=== PATIENT | female | born 1965 | race Caucasian/White ===

== ENCOUNTER 2022-01-19 12:28 | Emergency (ER) | payer BC, OTHER ==
[2022-01-19] MEDS ORDERED: ONDANSETRON 4 MG/2 ML VIAL ONE (13:14)
[2022-01-19] MEDS ORDERED: MORPHINE 4 MG/ML SYR ONE ×2 (13:14→15:10)
--- NOTE | 2022-01-19 14:14 | RAD REPORT ---
EXAM DESCRIPTION: RAD - Tib Fib Left - 01/19/2022 1:57 pm CLINICAL HISTORY: Fall, knee leg pain COMPARISON: Left knee same date FINDINGS: Tibial plateau and proximal tibia fracture changes are detailed on the knee report. From t he midshaft to the distal tibia no acute findings seen. No fibula fracture identified. No pathologic bone change seen. No foreign body in the soft tissues. IMPRESSION: Proximal left tibia fracture detailed on the knee report. Fibula is intact. Tibia from midshaft ankle unremarkable.
--- NOTE | 2022-01-19 14:17 | RAD REPORT ---
EXAM DESCRIPTION: RAD - Knee Left 3 View - 01/19/2022 1:59 pm CLINICAL HISTORY: PAINafter fall COMPARISON: Left tib-fib same date FINDINGS: Comminuted fracture involves the tibial plateau with large fracture planes extending to th e proximal shaft. Lateral tibial plateau shows approximately 12 mm of depression. There are multiple small fracture fragments along the course of the main fracture plane that extends from the lateral ma rgin of the tibial spine to the lateral margin of the proximal femoral shaft. Additional oblique frac ture plane traverses the medial tibial plateau. Fibula appears to be intact.Lateral femoral condyle is impacted into the tibial plateau with laterall y directed diastasis of the lateral tibial plateau fracture fragment. Small joint effusion is present. No fat fluid level identified on the cross-table lateral view. IMPRESSION: Comminuted fracture of the proximal tibia with impaction of the lateral femoral condyle into the lateral tibial plateau.
--- NOTE | 2022-01-19 14:21 | ER ---
Nurse's Notes [facility] Name: Carin Kline Age: 56 yrs Sex: Female : 1965 Arrival Date: 01/19/2022 Time: 12:32 Bed 2 Private MD: Diagnosis: Displaced comminuted fracture of shaft of left tibia-Tibial plateau with significant displacement Presentation: 01/19 12:33 Chief complaint: Patient states: Outside in shed and missed a step on the ladder and ww fell. Complaining of left leg and knee pain. Patient denies hitting head or any LOC. Received 100mcg of Fentanyl in route with EMS. Coronavirus screen: Vaccine status: Patient reports receiving the 2nd dose of the covid vaccine. Client denies travel out of the [place] in the last 14 days. Ebola Screen: Patient denies travel to an Ebola-affected area in the 21 days before illness onset. Initial Sepsis Screen: Does the patient meet any 2 criteria? No. Patient's initial sepsis screen is negative. Does the patient have a suspected source of infection? No. Patient's initial sepsis screen is negative. Risk Assessment: Do you want to hurt yourself or someone else? Patient reports no desire to harm self or others. Onset of symptoms was January 19, 2022. 12:33 Method Of Arrival: EMS: [facility] ww 12:33 Acuity: JERRY 3 ww Triage Assessment: 12:36 General: Appears uncomfortable, Behavior is calm, cooperative. Pain: Complains of pain ww in posterior aspect of left knee, left calf, medial aspect of left knee, medial aspect of left calf, left knee and left khalil. EENT: No signs and/or symptoms were reported regarding the EENT system. Neuro: Level of Consciousness is awake, alert, obeys commands, Oriented to person, place, time, situation, Speech is normal. Cardiovascular: Capillary refill < 3 seconds Patient's skin is warm and dry. Pulses are palpable in right posterior tibial artery, right dorsalis pedis artery, left posterior tibial artery and left dorsalis pedis artery Rhythm is regular. Respiratory: Airway is patent Respiratory effort is even, unlabored, Respiratory pattern is regular, symmetrical. GI: No signs and/or symptoms were reported involving the gastrointestinal system. Abdomen is non-distended, Abd is soft and non tender. : No signs and/or symptoms were reported regarding the genitourinary system. Derm: Skin is intact. Musculoskeletal: Reports pain in posterior aspect of left knee, left calf, medial aspect of left knee, medial aspect of left calf, left knee and left khalil. 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 - Social history:: Smoking status: Patient denies any tobacco usage or history of. - Family history:: not pertinent. - Hospitalizations: : No recent hospitalization is reported. Screenin:40 Abuse screen: Denies threats or abuse. Denies injuries from another. Nutritional ww screening: No deficits noted. Tuberculosis screening: No symptoms or risk factors identified. Fall Risk Fall in past 12 months (25 points). No secondary diagnosis (0 pts). IV access (20 points). Ambulatory Aid- None/Bed Rest/Nurse Assist (0 pts). Gait- Normal/Bed Rest/Wheelchair (0 pts) Mental Status- Oriented to own ability (0 pts). Total Hummel Fall Scale indicates Low Risk Score (25-44 pts). Fall prevention measures have been instituted. Side Rails Up X 2 Placed close to Nursing Station 1:1 attendant Assigned to Pt. Frequent Obs/Assesments occuring Family Present and informed to notify staff if they need to leave bedside As available Patient and Family Educated on Fall Prevention Program and strategies. Assessment: 12:40 Reassessment: Patient appears in no apparent distress at this time. Patient and/or ww family updated on plan of care and expected duration. Pain level reassessed. Patient is alert, oriented x 3, equal unlabored respirations, skin warm/dry/pink. see triage assessment. 13:46 Reassessment: Patient appears in no apparent distress at this time. No changes from vg1 previously documented assessment. Patient and/or family updated on plan of care and expected duration. Pain level reassessed. Patient is alert, oriented x 3, equal unlabored respirations, skin warm/dry/pink. Rates pain level 5/10. 14:35 Reassessment: Patient appears in no apparent distress at this time. No changes from ww previously documented assessment. Patient and/or family updated on plan of care and expected duration. Pain level reassessed. Patient is alert, oriented x 3, equal unlabored respirations, skin warm/dry/pink. placed left leg in knee immobilizer. Patient tolerated well with pain. Family at bedside. 15:10 Reassessment: Patient appears in no apparent distress at this time. No changes from ww previously documented assessment. Patient and/or family updated on plan of care and expected duration. Pain level reassessed. Patient is alert, oriented x 3, equal unlabored respirations, skin warm/dry/pink. Cardiovascular: Pulses are palpable in right dorsalis pedis artery and left dorsalis pedis artery. 16:08 Reassessment: Patient appears in no apparent distress at this time. No changes from ww previously documented assessment. Patient and/or family updated on plan of care and expected duration. Pain level reassessed. Patient is alert, oriented x 3, equal unlabored respirations, skin warm/dry/pink. 16:18 Reassessment: Report called to ARTHUR Hooker. MOT signed by patients spouse. All ww questions/concerns answered and addressed. Vital Signs: 12:33 BP 133 / 71; Pulse 88; Resp 18; Temp 97.5; Pulse Ox 99% on R/A; Weight 104.33 kg; ww Height 5 ft. 2 in. (157.48 cm); Pain 8/10; 12:45 BP 142 / 55; Pulse 86; Resp 14; Pulse Ox 97% on R/A; vg1 15:00 BP 110 / 64; Pulse 72; Resp 16; Pulse Ox 99% on R/A; vg1 16:18 BP 129 / 83; Pulse 79; Resp 16; Pulse Ox 98% on R/A; ww 16:30 BP 146 / 77; Pulse 87; Resp 17; Pulse Ox 97% on R/A; vg1 12:33 Body Mass Index 42.07 (104.33 kg, 157.48 cm) Ning Coma Score: 12:40 Eye Response: spontaneous(4). Verbal Response: oriented(5). Motor Response: obeys commands(6). Total: 15. Trauma Score (Adult): 12:40 Eye Response: spontaneous(1); Verbal Response: oriented(1); Motor Response: obeys ww commands(2); Systolic BP: > 89 mm Hg(4); Respiratory Rate: 10 to 29 per min(4); Eldena Score: 15; Trauma Score: 12 ED Course: 12:32 Patient arrived in ED. eb 12:32 Guevara Pérez MD is Attending Physician. rn 12:36 Triage completed. ww 12:36 Patient has correct armband on for positive identification. Bed in low position. Call mh5 light in reach. Side rails up X2. Warm blanket given. hospital monitor on. Pulse ox on. NIBP on. 12:36 Arm band placed on right wrist. ww 12:40 Maintain EMS IV. Dressing intact. Site clean \T\ dry. Gauge \T\ site: 20g left ac. ww 13:57 XRAY Tib Fib LEFT In Process Unspecified. EDMS 13:57 XRAY Knee LEFT 3 view In Process Unspecified. EDMS 14:21 initiated a transfer with Shayy from the [facility]. eb 14:24 Diet: Patient is NPO. [facility] 14:[address] Ortho [address] management [address]. Cote called and connected with Dr. Pérez for patient consultation.eb 14:54 Alma Castro, RN is Primary Nurse. ww 14:56 administrative approval given Shayy Torres/ patient has been accepted to [facility] bed 1619/ Dr. Abran Padgett has accepted this patient without conference with Dr. Pérez/ report to be called through the transfer center at [phone]. Administered Medications: 13:13 Drug: Zofran (Ondansetron) 4 mg Route: IVP; Site: left forearm; vg1 13:48 Follow up: Response: No adverse reaction vg1 13:15 Drug: morphine 4 mg Route: IVP; Site: left forearm; vg1 13:48 Follow up: Response: No adverse reaction; Pain is decreased vg1 15:15 Drug: morphine 4 mg Route: IVP; Site: left forearm; ww 17:01 Follow up: Response: No adverse reaction; Pain is decreased vg1 17:08 Drug: morphine 2 mg Route: IVP; Site: left forearm; vg1 17:09 Follow up: Response: Medication administered at discharge.; Other; adminisered upon vg1 transfer Outcome: 14:21 ER care complete, transfer ordered by . rn 17:11 Patient left the ED. vg1 Signatures: Dispatcher [employer] EDMS Guevara Pérez MD MD rn Martinez, Maria [facility] Dorie, Hattie Meade RN RN 1 Alma Castro RN RN
--- NOTE | 2022-01-19 14:21 | EDPHYS ---
Physician Documentation [facility] Name: Carin Kline Age: 56 yrs Sex: Female : 1965 Arrival Date: 01/19/2022 Time: 12:32 Bed 2 Private MD: ED Physician Guevara Pérez HPI: 01/19 13:00 This 56 yrs old Female presents to ER via EMS with complaints of left leg injury and rn pain. 13:00 The patient presents with decreased range of motion, an injury, pain. The complaints rn affect the left knee and left khalil. Onset: The symptoms/episode began/occurred just prior to arrival. Modifying factors: The symptoms are alleviated by remaining still, the symptoms are aggravated by movement. 13:01 Associated signs and symptoms: Pertinent positives:. rn 14:56 Severity of symptoms: At their worst the symptoms were moderate, in the emergency rn department the symptoms are unchanged. 15:08 Pt had mis-step, off of 2 step ladder, landed on left foot, reports isolated pain to rn below left knee. No neck/back/hip/thigh pain. Does not take anticoagulants. . 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 - Social history:: Smoking status: Patient denies any tobacco usage or history of. - Family history:: not pertinent. - Hospitalizations: : No recent hospitalization is reported. ROS: 15:08 Constitutional: Negative for fever, chills, and weight loss, Eyes: Negative for injury, rn pain, redness, and discharge, Neck: Negative for injury, pain, and swelling, Cardiovascular: Negative for chest pain, palpitations, and edema, Respiratory: Negative for shortness of breath, cough, wheezing, and pleuritic chest pain, Abdomen/GI: Negative for abdominal pain, nausea, vomiting, diarrhea, and constipation, Back: Negative for injury and pain, MS/Extremity: + left leg pain and swelling Skin: Negative for injury, rash, and discoloration, Neuro: Negative for headache, weakness, numbness, tingling, and seizure. Exam: 15:08 Constitutional: This is a well developed, well nourished patient who is awake, alert, rn appears uncomfortable, left knee held in passive flexion Head/Face: Normocephalic, atraumatic. Neck: No vertebral point tenderness Cardiovascular: Regular rate and rhythm. No pulse deficits. Respiratory: No increased work of breathing, no retractions or nasal flaring. Abdomen/GI: soft, non-tender Back: No spinal tenderness. Skin: Warm, dry, no cyanosis MS/ Extremity: Pulses equal, no cyanosis. + swelling and tenderness proximal tibia, no open wounds. Neuro: Awake and alert, GCS 15 Vital Signs: 12:33 BP 133 / 71; Pulse 88; Resp 18; Temp 97.5; Pulse Ox 99% on R/A; Weight 104.33 kg; ww Height 5 ft. 2 in. (157.48 cm); Pain 8/10; 12:45 BP 142 / 55; Pulse 86; Resp 14; Pulse Ox 97% on R/A; vg1 15:00 BP 110 / 64; Pulse 72; Resp 16; Pulse Ox 99% on R/A; vg1 16:18 BP 129 / 83; Pulse 79; Resp 16; Pulse Ox 98% on R/A; ww 16:30 BP 146 / 77; Pulse 87; Resp 17; Pulse Ox 97% on R/A; vg1 12:33 Body Mass Index 42.07 (104.33 kg, 157.48 cm) ww Ning Coma Score: 12:40 Eye Response: spontaneous(4). Verbal Response: oriented(5). Motor Response: obeys commands(6). Total: 15. Trauma Score (Adult): 12:40 Eye Response: spontaneous(1); Verbal Response: oriented(1); Motor Response: obeys commands(2); Systolic BP: > 89 mm Hg(4); Respiratory Rate: 10 to 29 per min(4); [place] Score: 15; Trauma Score: 12 MDM: 12:32 Patient medically screened. rn 14:51 ED course: Consulted with Dr. Shrestha, unable to see patient due to his recent surgery rn and can't lift more than 10 pounds. . 14:56 ED course: Dr. Boothe out of town and unable to see patient. States, will likely have to rn be transferred out. [facility] called back and accept patient for transfer without consultation.. 15:08 Differential diagnosis: closed fracture. Data reviewed: vital signs, nurses notes, rn radiologic studies, plain films, and as a result, I will discharge patient. Counseling: I had a detailed discussion with the patient and/or guardian regarding: the historical points, exam findings, and any diagnostic results supporting the discharge/admit diagnosis, radiology results, the need to transfer to another facility. Response to treatment: the patient's symptoms have mildly improved after treatment, and as a result, I will admit patient. 01/19 12:37 Order name: Protime (+inr); Complete Time: 14:54 rn 01/19 12:37 Order name: Ptt, Activated; Complete Time: 14:54 rn 01/19 14:01 Order name: SARS-COV-2 RT PCR (Document "Date of Onset" if Symptomatic) eb 01/19 15:15 Order name: Glucose, Ancillary Testing; Complete Time: 15:21 EDMS 01/19 12:37 Order name: XRAY Tib Fib LEFT; Complete Time: 14:18 rn 01/19 12:37 Order name: XRAY Knee LEFT 3 view; Complete Time: 14:18 rn 01/19 12:37 Order name: IV Start; Complete Time: 13:45 rn 01/19 12:37 Order name: NPO; Complete Time: 13:45 rn 01/19 15:21 Order name: Knee Immobilizer; Complete Time: 15:31 rn Administered Medications: 13:13 Drug: Zofran (Ondansetron) 4 mg Route: IVP; Site: left forearm; vg1 13:48 Follow up: Response: No adverse reaction vg1 13:15 Drug: morphine 4 mg Route: IVP; Site: left forearm; vg1 13:48 Follow up: Response: No adverse reaction; Pain is decreased vg1 15:15 Drug: morphine 4 mg Route: IVP; Site: left forearm; ww 17:01 Follow up: Response: No adverse reaction; Pain is decreased vg1 17:08 Drug: morphine 2 mg Route: IVP; Site: left forearm; vg1 17:09 Follow up: Response: Medication administered at discharge.; Other; adminisered upon vg1 transfer Disposition Summary: 01/19/22 14:21 Transfer Ordered Transfer Location: [facility] rn Reason: Higher level of care rn Condition: Stable rn Problem: new rn Symptoms: are unchanged rn Accepting Physician: Dr. Abran Padgett(01/19/22 17:11) vg1 Diagnosis - Displaced comminuted fracture of shaft of left tibia - Tibial plateau with rn significant displacement Forms: - Medication Reconciliation Form rn - SBAR form rn Signatures: Dispatcher [employer] EDMS Guevara Pérez MD MD rn Botello, Elizabeth eb Garcia, Victoria, RN RN vg1 Alma Castro RN RN ww Corrections: (The following items were deleted from the chart) 15:05 14:54 Labs - recollect needed ordered. eb vg1 15:09 14:56 ED course: Dr. Boothe out of town and unable to see patient. [facility] called back rn and accept patient for transfer without consultation.. rn 15:15 14:21 Dr. mooney eb 17:11 15:15 Dr. Abran Padgett eb vg1
[2022-01-19 14:46] LABS: Protime INR 1.03
[2022-01-19] MEDS ORDERED: MORPHINE 2 MG/ML SYR ONE (17:08)
[2022-01-19 17:56] VITALS: TEMP 97.5
[2022-01-19 18:01] VITALS: BP 146/77; O2SAT 97
== END 2022-01-19 17:11 | disposition short-term general hospital (02) ==
LOC: ER 12:28
DX: M79.662 Pain in left lower leg (principal); S82.192A Other fracture of upper end of left tibia, initial encounter for closed fracture; W10.9XXA Fall (on) (from) unspecified stairs and steps, initial encounter; Z88.8 Allergy status to other drugs, medicaments and biological substances; Z20.822 Contact with and (suspected) exposure to COVID-19
CPT/HCPCS: 36415; 85610; 82947; 85730; 73562; 73590; 96375; 96374; 99284; U0003; J2270; J2405

== ENCOUNTER 2024-12-30 12:40 | Emergency (ER) | payer BC ==
--- NOTE | 2024-12-30 13:31 | RAD REPORT ---
EXAMINATION: CT ABDOMEN AND PELVIS WITHOUT CONTRAST-protocol CLINICAL INDICATION: Female, 59 years old.FLANK PAIN TECHNIQUE: CT abdomen and pelvis was performed with stone protocol, without IV contrast, as per [facility] protocol. Axial, sagittal and coronal reconstructions were obtained. One or more of the following dose reduction techniques were used: Automated exposure control, adjustment of the mA and/o r kV according to the patient size, and/or iterative reconstruction. Unless otherwise specified, incidental findings do not require dedicated imaging follow-up. [id number]. IV CONTRAST: Not administered. COMPARISON: None FINDINGS: The lack of intravenous contrast limits the sensitivity of this exam for evaluation of solid visceral organs, vascular structures, and retroperitoneum. LOWER CHEST: No acute process identified.No significant pericardial effusion. UPPER GI: No significant abnormality. LIVER: Hepatomegaly with steatosis. GALLBLADDER/BILE DUCTS: No biliary ductal dilatation.? PANCREAS: No mass, ductal dilation, or jose r-pancreatic fluid. SPLEEN: Unremarkable. ADRENALS: No adrenal masses. KIDNEYS AND URETERS: No hydronephrosis.Limited evaluation for renal lesions in the absence of IV cont rast.No renal calculi. ABDOMINAL AORTA AND OTHER VESSELS: Normal caliber aorta and IVC. PERITONEUM: No abnormal free fluid. No free air. LYMPH NODES: No pathologic lymphadenopathy. ABDOMINAL WALL: Unremarkable SMALL BOWEL/COLON: Small bowel has normal course and caliber. No colonic wall thickening or pericolon ic inflammatory changes.Normal appendix. Mild diverticulosis without diverticulitis. Moderate formed stool burden. URINARY BLADDER: Underdistended but grossly unremarkable. REPRODUCTIVE ORGANS: Uterus surgically absent. No adnexal abnormality. MUSCULOSKELETAL: Multilevel degenerative changes in the spine. No acute fracture. ADDITIONAL FINDINGS: None. IMPRESSION: No acute findings within the abdomen or pelvis. No urinary tract calculi. Hepatomegaly with steatosis.
[2024-12-30 14:10] LABS: Specific Gravity > 1.030 (1.005-1.030); Sqamous Epithelial <5 /HPF (None Seen); Urine Bacteria <20 /HPF (<20); Urine Bilirubin NEGATIVE (Negative); Urine Blood Negative (Negative); Urine Clarity Turbid (Clear); Urine Color Yellow (Yellow); Urine Culture Reflex Order NOT NEEDED; Urine Glucose NEGATIVE (Negative); Urine Ketones NEGATIVE (Negative); Urine Microscopic Reflex YN ORDER UMIC; Urine Mucus 2+ /HPF (None Seen); Urine Nitrite NEGATIVE (Negative); Urine Protein TRACE (Negative); Urine RBC None Seen /HPF (None Seen); Urine Urobilinogen Normal (Normal); Urine WBC <5 /HPF (<5); Urine Yeast (Budding) Few /HPF (None Seen); Urine pH 5.5 (5.0-7.0)
[2024-12-30 14:34] LABS: Albumin 3.8 g/dL (3.4-5.0); Albumin/Globulin Ratio 0.9 (1.1-1.8); Anion Gap 6.2 mEq/L (5.0-15.0); Bilirubin Total 0.4 mg/dL (0.2-1.0); Globulin 4.2 g/dL (2.3-3.5); Potassium 4.2 mEq/L (3.5-5.1)
--- NOTE | 2024-12-30 14:35 | RAD REPORT ---
Abdomen Exam Limited: 12/30/2024 1:08 PM CLINICAL HISTORY: ABD PAIN STUDY: Limited right upper quadrant ultrasound of abdomen. COMPARISON: 12/30/2024 FINDINGS: Liver: Hepatic steatosis but only partially imaged. Bile ducts: No intrahepatic or extrahepatic biliary ductal dilatation. Common bile duct measures 3 mm. Gallbladder: Normal. IMPRESSION: Negative for cholelithiasis or acute cholecystitis. Hepatic steatosis.
--- NOTE | 2024-12-30 15:07 | ER ---
Nurse's Notes [facility] Name: Carin Kline Age: 59 yrs Sex: Female : 1965 Arrival Date: 12/30/2024 Time: 12:40 Bed DX5 Private MD: Diagnosis: Abdominal pain, Generalized;Low back pain;Constipation Presentation: 12/30 13:06 Chief complaint: Patient states: RUQ abdominal pain and back pain onset 2 days ago. Pt cm10 reports that she is also having nausea. Coronavirus screen: Client denies travel out of the [place] in the last 14 days. Ebola Screen: Patient denies travel to an Ebola-affected area in the 21 days before illness onset. Initial Sepsis Screen: Does the patient meet any 2 criteria? No. Patient's initial sepsis screen is negative. Does the patient have a suspected source of infection? No. Patient's initial sepsis screen is negative. Risk Assessment: Do you want to hurt yourself or someone else? Patient reports no desire to harm self or others. Onset of symptoms was December 30, 2024. 13:06 Method Of Arrival: Ambulatory cm10 13:06 Acuity: JERRY 3 cm10 Triage Assessment: 13:07 General: Appears in no apparent distress. uncomfortable, Behavior is calm, cooperative. cm10 Pain: Complains of pain in right upper quadrant and right lower quadrant Pain currently is 7 out of 10 on a pain scale. Quality of pain is described as sharp, Pain began 2-3 days ago. Neuro: No deficits noted. Level of Consciousness is awake, alert, obeys commands, Oriented to person, place, time, situation, Appropriate for age. Respiratory: No deficits noted. Airway is patent Respiratory effort is even, unlabored, Respiratory pattern is regular, symmetrical. Historical: - Allergies: 13:08 Wellbutrin; cm10 - PMHx: 13:08 depressive disorder; diabetes mellitus; Hypertensive disorder; cm10 - PSHx: 13:08 Total abdominal hysterectomy; cm10 - Immunization history:: Adult Immunizations up to date. - Infectious Disease History:: Denies. - Social history:: Smoking status: Patient denies any tobacco usage or history of. Screenin:38 [facility] ED Fall Risk Assessment (Adult) History of falling in the last 3 months, ll1 including since admission No falls in past 3 months (0 pts) Confusion or Disorientation No (0 pts) Intoxicated or Sedated No (0 pts) Impaired Gait No (0 pts) Mobility Assist Device Used No (0 pt) Altered Elimination No (0 pt) Score/Fall Risk Level 0 - 2 = Low Risk Maintained a safe environment, Hourly rounding (assess needs \T\ fall precautionary measures) done. Abuse screen: Denies threats or abuse. Nutritional screening: No deficits noted. Tuberculosis screening: No symptoms or risk factors identified. Assessment: 15:37 Reassessment: No changes from previously documented assessment. Patient and/or family ll1 updated on plan of care and expected duration. Pain level reassessed. Patient is alert, oriented x 3, equal unlabored respirations, skin warm/dry/pink. Patient states symptoms have improved. 15:38 GI: Bowel sounds present X 4 quads. Abd is soft and non tender X 4 quads. ll1 Vital Signs: 13:06 BP 162 / 92; Pulse 78; Resp 18; Temp 98.2; Pulse Ox 98% on R/A; Weight 81.65 kg; Height cm10 5 ft. 2 in. ; Pain 7/10; 13:06 Body Mass Index 32.92 (81.65 kg, 157.48 cm) cm10 13:06 Pain Scale: Adult cm10 ED Course: 12:43 Patient arrived in ED. cj3 12:57 Adelina Hollis, [facility] kb 12:57 Kenrick Beltran MD is Attending Physician. kb 13:07 Triage completed. cm10 13:08 Arm band placed on left wrist. Patient placed in waiting room. cm10 13:18 CT Stone Protocol In Process Unspecified. EDMS 13:40 Urinalysis w/ reflexes Sent. cm10 13:45 Abdomen Limited US In Process Unspecified. EDMS 14:10 CBC with Diff Sent. bc6 14:10 CMP Sent. bc6 14:10 Lipase Sent. bc6 14:10 Initial lab(s) drawn, by me, sent to lab. Missed attempt(s): 24 gauge in left forearm. bc6 Bleeding controlled, band aid applied, catheter tip intact. 14:43 Missed attempt(s): 24 gauge in left forearm. Bleeding controlled, band aid applied, ll1 catheter tip intact. 15:38 Patient has correct armband on for positive identification. Provided Education on: ll1 return to ED for worsening symptoms. 15:38 No provider procedures requiring assistance completed. Patient did not have IV access ll1 during this emergency room visit. Administered Medications: 15:06 CANCELLED (Other Intervention Used): [id number] mg IVP once; dilute with 10 mL 0.9% kb NaCl; give over 2 minutes 15:06 CANCELLED (Other Intervention Used): TORadol - [id number] mg IVP once kb 15:06 CANCELLED (Other Intervention Used): ondansetron 4 mg IVP once; over 2 minutes kb 15:06 CANCELLED (Other Intervention Used): ns 0.9% 1000 ml IV at 1 bolus Per protocol; to be kb given as a bolus over 60 minutes 15:20 Drug: Ondansetron PO 4 mg PO once Route: PO; ll1 15:37 Follow up: Response: No adverse reaction ll1 15:20 Drug: Ketorolac IM 30 mg IM once {Note: pain 5/10.} Route: IM; Site: left deltoid; ll1 15:37 Follow up: Response: No adverse reaction; Pain is decreased ll1 15:20 Drug: Magnesium Citrate PO Liquid 300 ml PO once Route: PO; ll1 15:37 Follow up: Response: No adverse reaction ll1 15:20 Drug: Cyclobenzaprine PO 10 mg PO once Route: PO; ll1 15:37 Follow up: Response: No adverse reaction ll1 Medication: 15:38 VIS not applicable for this client. ll1 Outcome: 15:07 Discharge ordered by . kb 15:37 Discharged to home ambulatory, ll1 15:37 Condition: stable 15:37 Discharge instructions given to patient, Instructed on discharge instructions, follow up and referral plans. medication usage, Demonstrated understanding of instructions, follow-up care, medications, Prescriptions given X 3, 15:39 Patient left the ED. ll1 Signatures: Dispatcher [employer] EDAdelina Juarez FNP-C FNP-Rito Powell RN RN ll1 Lauren Rivas bc6 Sherry Maldonado RN RN cm10 Pascale Walker cj3
--- NOTE | 2024-12-30 15:08 | EDPHYS ---
Physician Documentation [facility] Name: Carin Kline Age: 59 yrs Sex: Female : 1965 Arrival Date: 12/30/2024 Time: 12:40 Bed DX5 Private MD: ED Physician Kenrick Beltran HPI: 12/30 13:09 This 59 yrs old Female presents to ER via Ambulatory with complaints of Abdominal Pain, kb Back Pain. 13:09 Pt is a 59 year old female who presents for right flank pain that started 3 days ago kb with radiation to RLQ and nausea. Reports last BM was 3 days ago. complains of bloating feeling causing decreased appetite. Denies vomiting, diarrhea, fever. Urinary frequency yesterday, but no other urinary symptoms. . Historical: - Allergies: 13:08 Wellbutrin; cm10 - PMHx: 13:08 depressive disorder; diabetes mellitus; Hypertensive disorder; cm10 - PSHx: 13:08 Total abdominal hysterectomy; cm10 - Immunization history:: Adult Immunizations up to date. - Infectious Disease History:: Denies. - Social history:: Smoking status: Patient denies any tobacco usage or history of. ROS: 13:08 Constitutional: As per HPI kb Exam: 13:08 Constitutional: This is a well developed, well nourished patient who is awake, alert, kb and in no acute distress. Head/Face: Normocephalic, atraumatic. ENT: Moist Mucous membranes Cardiovascular: Regular rate Respiratory: Respirations even and unlabored. No increased work of breathing. Talking in full sentences Skin: Warm, dry with normal turgor. Normal color. MS/ Extremity: Pulses equal, no cyanosis. Neurovascular intact. Full, normal range of motion. Neuro: Awake and alert, GCS 15, oriented to person, place, time, and situation. 13:08 Abdomen/GI: Inspection: abdomen appears normal, Bowel sounds: normal, Palpation: soft, in all quadrants, moderate abdominal tenderness, in the right upper quadrant, 13:08 Back: CVA tenderness, that is moderate, is noted on the right, Vital Signs: 13:06 BP 162 / 92; Pulse 78; Resp 18; Temp 98.2; Pulse Ox 98% on R/A; Weight 81.65 kg; Height cm10 5 ft. 2 in. ; Pain 7/10; 13:06 Body Mass Index 32.92 (81.65 kg, 157.48 cm) cm10 13:06 Pain Scale: Adult cm10 MDM: 12:57 Medical Screening Exam initiated kb 13:10 Differential diagnosis: appendicitis, bowel obstruction, cholecystitis, Cholelithiasis, kb non-specific abd pain, Ureterolithiasis, urinary tract infection. Data reviewed: vital signs, nurses notes. Historians other than the Patient: Spouse/Significant Other: spouse. 15:07 Counseling: I had a detailed discussion with the patient and/or guardian regarding the kb historical points, exam findings, and any diagnostic results supporting the discharge/admit diagnosis, lab results, radiology results, the need for outpatient follow up, a family practitioner, to return to the emergency department if symptoms worsen or persist or if there are any questions or concerns that arise at home. 12/30 13:08 Order name: CMP; Complete Time: 14:36 kb 12/30 13:08 Order name: Lipase; Complete Time: 14:36 kb 12/30 13:08 Order name: Urinalysis w/ reflexes; Complete Time: 14:17 kb 12/30 13:08 Order name: Abdomen Limited US; Complete Time: 14:36 kb 12/30 13:08 Order name: CT Stone Protocol; Complete Time: 13:33 kb 12/30 13:08 Order name: Labs collected and sent; Complete Time: 14:10 kb Administered Medications: 15:06 CANCELLED (Other Intervention Used): [id number] mg IVP once; dilute with 10 mL 0.9% kb NaCl; give over 2 minutes 15:06 CANCELLED (Other Intervention Used): TORadol - [id number] mg IVP once kb 15:06 CANCELLED (Other Intervention Used): ondansetron 4 mg IVP once; over 2 minutes kb 15:06 CANCELLED (Other Intervention Used): ns 0.9% 1000 ml IV at 1 bolus Per protocol; to be kb given as a bolus over 60 minutes 15:20 Drug: Ondansetron PO 4 mg PO once Route: PO; ll1 15:37 Follow up: Response: No adverse reaction ll1 15:20 Drug: Ketorolac IM 30 mg IM once {Note: pain 5/10.} Route: IM; Site: left deltoid; ll1 15:37 Follow up: Response: No adverse reaction; Pain is decreased ll1 15:20 Drug: Magnesium Citrate PO Liquid 300 ml PO once Route: PO; ll1 15:37 Follow up: Response: No adverse reaction ll1 15:20 Drug: Cyclobenzaprine PO 10 mg PO once Route: PO; ll1 15:37 Follow up: Response: No adverse reaction ll1 Disposition Summary: 12/30/24 15:07 Discharge Ordered Notes: Location: Home kb Condition: Stable kb Diagnosis - Abdominal pain, Generalized kb - Low back pain kb - Constipation kb Followup: kb - With: Emergency Department - When: As needed - Reason: Worsening of condition Followup: kb - With: Private Physician - When: 2 - 3 days - Reason: Recheck today's complaints, Continuance of care, Re-evaluation by your physician Discharge Instructions: - Discharge Summary Sheet kb - Musculoskeletal Pain kb - Abdominal Pain, Adult, [id number] kb - Flank Pain, Adult, [id number] kb Forms: - Medication Reconciliation Form kb - Antibiotic Education kb - Prescription Opioid Use kb - Patient Portal Instructions kb - Leadership Thank You Letter kb Prescriptions: - Zofran 4 mg Oral tablet - take 1 tablet ORAL route every 6 hours As needed; 12 tablet; Refills: 0, kb Product Selection Permitted - Diclofenac Sodium 75 mg Oral tablet, delayed release (enteric coated) - take 1 tablet ORAL route 2 times per day As needed; 30 tablet; Refills: 0, kb Product Selection Permitted - orphenadrine citrate 100 mg Oral Tablet Sustained Release - take 1 tablet ORAL route 2 times per day As needed; 20 tablet; Refills: 0, kb Product Selection Permitted Signatures: Dispatcher [employer] EDMA Adelina Hollis, SUPERVISOR LIQUEFACTION-C SUPERVISOR LIQUEFACTION-Estrella Dejesus Lynsay, RN RN ll1 Sherry Maldonado RN RN cm10 Corrections: (The following items were deleted from the chart) 13:08 13:08 Stone Protocol+[id number] ordered. EDMA EDMS 15:06 13:08 Famotidine IVP 20 mg IVP once; dilute with 10 mL 0.9% NaCl; give over 2 minutes kb ordered. kb 15:06 13:08 TORadol - Ketorolac IVP 15 mg IVP once ordered. kb kb 15: 13:08 Ondansetron IVP 4 mg IVP once; over 2 minutes ordered. kb kb 15:06 13:08 NS 0.9% IV 1000 ml IV at 1 bolus Per protocol; to be given as a bolus over 60 kb minutes ordered. kb
[2024-12-30] MEDS ORDERED: KETOROLAC 30 MG/ML INJ ONE (15:12)
[2024-12-30] MEDS ORDERED: ONDANSETRON 4 MG (ODT) TAB ONE (15:12)
[2024-12-30] MEDS ORDERED: CYCLOBENZAPRINE 10 MG TAB ONE (15:12)
[2024-12-30] MEDS ORDERED: MAGNESIUM CITRATE 300 ML BOT ONE (15:13)
[2024-12-30 15:45] VITALS: BP 162/92; TEMP 98.2; O2SAT 98
== END 2024-12-30 15:39 | disposition home or self-care (01) ==
LOC: ER 12:40
DX: R10.84 Generalized abdominal pain (principal); M54.50 Low back pain, unspecified; K59.00 Constipation, unspecified; F32.A Depression, unspecified
CPT/HCPCS: 81001; 36415; 83690; 80053; 76377; 74176; 76705; Q0162